=== PATIENT | female | born 2000 | race Caucasian/White ===

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

== ENCOUNTER 2024-04-26 16:38 | Emergency (ER) | payer BC ==
[~2024-04-26] VITALS: Ht 165.1 cm; Wt 52.3 kg
[2024-04-26 17:05] LABS: BASO # 0.02 K/mm3 (0.02-0.10); EOS # 0.17 K/mm3 (0.04-0.40); HEMATOCRIT 40.7 % (37.0-47.0); HEMOGLOBIN 13.4 g/dL (12.5-16.0); LYMPH# 1.35 K/mm3 (1.50-4.00); MEAN CELL VOLUME 94 fl (78-100); MEAN CORPUSCULAR HEMOGLOBIN 31 pg (27-31); MEAN CORPUSCULAR HGB CONC 33 g/dL (33-37); MEAN PLATELET VOLUME 11.1 fl (7.4-10.4); MONO # 0.67 K/mm3 (0.20-0.80); NEU # 3.39 K/mm3 (1.40-6.50); RED BLOOD COUNT 4.33 M/mm3 (4.10-5.30); RED CELL DISTRIBUTION WIDTH 12.7 % (11.5-14.5); WHITE BLOOD COUNT 5.6 K/mm3 (4.8-10.8)
[2024-04-26 17:12] LABS: ALBUMIN 4.6 g/dL (3.5-5.0)
[2024-04-26 17:14] LABS: CALCIUM 9.4 mg/dL (8.3-10.5)
[2024-04-26 17:15] LABS: TOTAL PROTEIN 7.3 g/dL (6.4-8.3)
[2024-04-26 17:17] LABS: TOTAL BILIRUBIN 1.4 mg/dL (0.2-1.2)
[2024-04-26 17:29] LABS: PLATELET COUNT 260 K/mm3 (130-400)
[2024-04-26 17:44] VITALS: BP 126/70
== END 2024-04-26 17:48 | disposition home or self-care (01) ==
LOC: ED 16:38
PROVIDERS: Nurse Practitioner
DX: N92.0 Excessive and frequent menstruation with regular cycle (principal)

== ENCOUNTER → 2024-04-27 | Outpatient (CLI) | payer BC | LOC: RAD 08:18 | DX: N93.9 Abnormal uterine and vaginal bleeding, unspecified (principal) ==